=== PATIENT | female | born 1945 | race Caucasian/White ===

== ENCOUNTER 2017-06-23 10:08 | Emergency (ER) | payer OTHER ==
[~2017-06-23] VITALS: Ht 160 cm; Wt 83.9 kg
[~2017-06-23 10:08] MED LIST: AMLO10TA PO; SIMV40TA1 PO
[2017-06-23 10:09] VITALS: BP 160/104
--- NOTE | 2017-06-23 10:18 | NUR ---
PT AMBULATED TO ER BED 01
--- NOTE | 2017-06-23 10:22 | NUR ---
72/F PRESENT TO ER C/O HIGH BLOOD PRESSURE x ONE WEEK. . DENIES N/V/D; SKIN IS PINK/WARM/DRY; AAOX4 WITH EVEN AND STEADY GAIT; LUNGS CLEAR BL; HR EVEN AND REGULAR; PT DENIES ANY FEVER, CP, SOB, OR COUGH AT THIS TIME; PATIENT STATES PAIN OF 8/10 AT THIS TIME; VSS; PATIENT POSITIONED FOR COMFORT; HOB ELEVATED; BEDRAILS UP X2; BED DOWN. ER MD MADE AWARE OF PT STATUS.
[2017-06-23] MEDS ORDERED: ACETAMINOPHEN EXTRA STRENGTH 500 MG TAB PO ONE (10:55)
[2017-06-23 11:09] LABS: BASOPHILS # (AUTO) 0.3 K/uL (0.00-0.22); BASOPHILS % (AUTO) 3.1 % (0.0-2.0); EOSINOPHILS # (AUTO) 0.1 K/uL (0-0.4); EOSINOPHILS % (AUTO) 1.3 % (0.0-4.0); HEMATOCRIT 39.1 % (36-48); LYMPHOCYTES # (AUTO) 2.5 K/uL (2.5-16.5); LYMPHOCYTES % (AUTO) 27.3 % (20.5-51.1); MEAN CORPUSCULAR HEMOGLOBIN 28 pg (27-31); MEAN CORPUSCULAR HGB CONC 33 g/dL (33-37); MEAN CORPUSCULAR VOLUME 85 fL (80-94); MONOCYTES # (AUTO) 0.4 K/uL (0.8-1.0); MONOCYTES % (AUTO) 3.9 % (1.7-9.3); NEUTROPHILS # (AUTO) 5.8 K/uL (1.8-7.7); NEUTROPHILS % (AUTO) 64.4 % (42.2-75.2); PLATELET COUNT (AUTO) 270 K/uL (140-450); RED BLOOD CELL COUNT(AUTO) 4.63 MIL/uL (4.20-5.40); RED CELL DISTRIBUTION WIDTH 12.9 % (11.6-13.7); WHITE BLOOD COUNT (AUTO) 9.1 K/uL (4.8-10.8)
--- NOTE | 2017-06-23 11:14 | NUR ---
rechecked bp 145/81, hr 61, o2 sat 99%.
[2017-06-23 11:35] LABS: ALBUMIN 3.6 g/dL (3.4-5.0); ANION GAP 11.9 (8-16); ASPARTATE AMINOTRANSFERASE 11 U/L (15-37); CARBON DIOXIDE 29.4 mmol/L (21-32); CHLORIDE 99 mmol/L (98-107); CREATININE 0.9 mg/dL (0.6-1.3); GLUCOSE 127 mg/dL (74-106); POTASSIUM 4.3 mmol/L (3.5-5.1); SODIUM SERUM 136 mmol/L (136-145); TOTAL BILIRUBIN 0.4 mg/dL (0.0-1.0); UREA NITROGEN, BLOOD 15 mg/dL (7-18)
[2017-06-23 11:47] LABS: CREATINE KINASE MB 0.9 ng/mL (0-3.6)
[2017-06-23 12:53] VITALS: BP 132/79
== END 2017-06-23 12:52 | disposition home or self-care (01) ==
LOC: MED 10:08
DX: I10 Essential (primary) hypertension (principal); R35.0 Frequency of micturition
CPT/HCPCS: 36415; 71045; 80053; 82550; 82553; 84484; 85025; 93005; 99285; Q0092

== ENCOUNTER 2017-12-01 17:37 | Emergency (ER) | payer OTHER ==
[~2017-12-01] VITALS: Ht 162.6 cm; Wt 81.2 kg
[2017-12-01 17:45] VITALS: BP 175/98
--- NOTE | 2017-12-01 17:52 | NUR ---
PT AMBULATED TO RM 7 WITH STEADY GAIT.
--- NOTE | 2017-12-01 18:00 | NUR ---
72F bib friend with c/o high blood pressure. Patient sts bp at home was 200s/90s. No facial/smile symmetry noted. Patient with steady gait. PERRLA. 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 Clear speech with full sentences. Patient reports of right arm pain, bl leg pain, and "waist". Patient denies any recent injury or trauma. Patient denies any cp or sob. RR are even and unlabored. Skin is warm/dry/color appriopriate for ethinicity. ER md Bowens made aware of patient status. Positioned to comfort. All needs met at this time. Awaiting er md palafox. Will continue to monitor.
--- NOTE | 2017-12-01 18:11 | NUR ---
xray by bedside
[2017-12-01 18:29] LABS: BASOPHILS # (AUTO) 0.1 K/uL (0.00-0.22); BASOPHILS % (AUTO) 0.5 % (0.0-2.0); EOSINOPHILS # (AUTO) 0.2 K/uL (0-0.4); EOSINOPHILS % (AUTO) 2.4 % (0.0-4.0); HEMATOCRIT 38.5 % (36-48); HEMOGLOBIN 12.6 g/dL (12.0-16.0); LYMPHOCYTES # (AUTO) 3.7 K/uL (2.5-16.5); MEAN CORPUSCULAR HEMOGLOBIN 28 pg (27-31); MEAN CORPUSCULAR HGB CONC 33 g/dL (33-37); MONOCYTES # (AUTO) 0.7 K/uL (0.8-1.0); MONOCYTES % (AUTO) 7.4 % (1.7-9.3); NEUTROPHILS # (AUTO) 4.8 K/uL (1.8-7.7); NEUTROPHILS % (AUTO) 50.7 % (42.2-75.2); PLATELET COUNT (AUTO) 251 K/uL (140-450); RED BLOOD CELL COUNT(AUTO) 4.53 MIL/uL (4.20-5.40); RED CELL DISTRIBUTION WIDTH 13.2 % (11.6-13.7); WHITE BLOOD COUNT (AUTO) 9.4 K/uL (4.8-10.8)
[2017-12-01 18:40] LABS: POTASSIUM 4.1 mmol/L (3.5-5.1); SODIUM SERUM 126 mmol/L (136-145)
[2017-12-01 18:41] LABS: ANION GAP 8.5 (8-16); CARBON DIOXIDE 28.6 mmol/L (21-32); CHLORIDE 93 mmol/L (98-107); CREATININE 0.7 mg/dL (0.6-1.3); GLUCOSE 119 mg/dL (74-106); UREA NITROGEN, BLOOD 14 mg/dL (7-18)
[2017-12-01 18:59] LABS: ALBUMIN 3.7 g/dL (3.4-5.0); ASPARTATE AMINOTRANSFERASE 13 U/L (15-37); TOTAL BILIRUBIN 0.5 mg/dL (0.0-1.0)
--- NOTE | 2017-12-01 19:11 | NUR ---
Pt report given to TATY. Transfer of care at this time. PT STABLE AT THIS TIME.
--- NOTE | 2017-12-01 19:12 | NUR ---
PATIENT RESTING AT THIS TIME. NO SIGNS OF DISTRESS.
--- NOTE | 2017-12-01 20:10 | NUR ---
Dr. Vazquez evaluating patient at bedside.
[2017-12-01] MEDS ORDERED: ACETAMINOPHEN EXTRA STRENGTH 500 MG TAB PO ONE (20:15)
[2017-12-01] MEDS ORDERED: NACL 0.9% 1,000 ML IV ONE (20:20)
--- NOTE | 2017-12-01 20:24 | NUR ---
Patient taken to CT scan via wheelchair by tech.
--- NOTE | 2017-12-01 20:35 | NUR ---
PATIENT RETURN FROM CT.
[2017-12-01 21:10] LABS: APPEARANCE,URINE CLEAR (CLEAR); BILIRUBIN,URINE NEGATIVE (NEGATIVE); BLOOD, URINE NEGATIVE (NEGATIVE); COLOR,URINE YELLOW (YELLOW); LEUKOCYTE ESTERASE ,URINE NEGATIVE (NEGATIVE); NITRITE, URINE NEGATIVE (NEGATIVE); UGLUCOSE NEGATIVE (NEGATIVE)
[2017-12-01 21:21] LABS: RBC,URINE 0-5 (RARE) /HPF (0-5); WBC,URINE 0-5 (RARE) /HPF (0-5)
[2017-12-01 22:01] LABS: ANION GAP 7.4 (8-16); CARBON DIOXIDE 28.9 mmol/L (21-32); CHLORIDE 96 mmol/L (98-107); CREATININE 0.7 mg/dL (0.6-1.3); GLUCOSE 104 mg/dL (74-106); POTASSIUM 4.3 mmol/L (3.5-5.1); SODIUM SERUM 128 mmol/L (136-145); UREA NITROGEN, BLOOD 13 mg/dL (7-18)
[2017-12-01 22:45] VITALS: BP 170/81
--- NOTE | 2017-12-01 22:45 | NUR ---
Patient discharged with v/s stable. Written and verbal after care instructions given and explained. Patient alert, oriented and verbalized understanding of instructions. Ambulatory with steady gait. All questions addressed prior to discharge. ID band removed. Patient advised to follow up with PMD. Rx of CLONIDINE given. Patient educated on indication of medication including possible reaction and side effects. Opportunity to ask questions provided and answered.
== END 2017-12-01 22:45 | disposition home or self-care (01) ==
LOC: MED 17:37
DX: E86.0 Dehydration (principal); E87.1 Hypo-osmolality and hyponatremia; I10 Essential (primary) hypertension; E78.5 Hyperlipidemia, unspecified; Z76.0 Encounter for issue of repeat prescription; Z79.899 Other long term (current) drug therapy
CPT/HCPCS: 36415; 70450; 71045; 80048; 80053; 81001; 83880; 84484; 85025; 85610; 85730; 87086; 93005; 96360; 99285; J7030; Q0092

== ENCOUNTER 2017-12-14 23:21 | Emergency (ER) | payer OTHER ==
[~2017-12-14] VITALS: Ht 157.5 cm; Wt 88.2 kg
[2017-12-14 23:25] VITALS: BP 163/90
--- NOTE | 2017-12-14 23:30 | NUR ---
PATIENT TO ER BED 5.
--- NOTE | 2017-12-14 23:40 | NUR ---
PATIENT UNABLE TO URINATE AT THIS TIME.
[2017-12-14] MEDS ORDERED: NACL 0.9% 1,000 ML IV ONE (23:45)
[2017-12-14] MEDS ORDERED: ONDANSETRON 4 MG/2 ML VIAL IVP ONE (23:45)
[2017-12-15 00:04] LABS: BASOPHILS % (AUTO) 0.2 % (0.0-2.0); EOSINOPHILS % (AUTO) 0.1 % (0.0-4.0); HEMATOCRIT 38.3 % (36-48); HEMOGLOBIN 12.7 g/dL (12.0-16.0); LYMPHOCYTES # (AUTO) 0.9 K/uL (2.5-16.5); LYMPHOCYTES % (AUTO) 6.7 % (20.5-51.1); MEAN CORPUSCULAR HEMOGLOBIN 28 pg (27-31); MEAN CORPUSCULAR HGB CONC 33 g/dL (33-37); MONOCYTES # (AUTO) 0.4 K/uL (0.8-1.0); MONOCYTES % (AUTO) 2.9 % (1.7-9.3); NEUTROPHILS # (AUTO) 12.7 K/uL (1.8-7.7); NEUTROPHILS % (AUTO) 90.1 % (42.2-75.2); PLATELET COUNT (AUTO) 203 K/uL (140-450); RED BLOOD CELL COUNT(AUTO) 4.62 MIL/uL (4.20-5.40); WHITE BLOOD COUNT (AUTO) 14.1 K/uL (4.8-10.8)
[2017-12-15 00:24] LABS: ALBUMIN 4.2 g/dL (3.4-5.0); ASPARTATE AMINOTRANSFERASE 19 U/L (15-37); CARBON DIOXIDE 24.3 mmol/L (21-32); CHLORIDE 89 mmol/L (98-107); CREATININE 0.8 mg/dL (0.6-1.3); GLUCOSE 163 mg/dL (74-106); LIPASE 96 U/L (73-393); POTASSIUM 3.6 mmol/L (3.5-5.1); TOTAL BILIRUBIN 0.5 mg/dL (0.0-1.0); UREA NITROGEN, BLOOD 16 mg/dL (7-18)
--- NOTE | 2017-12-15 00:25 | NUR ---
PT C/O VOMITING X11 HOURS, 8/10 PAIN TO ABD, ABD IS ROUND, SOFT, NON TENDER, ACTIVE BS X4. PT LAYING IN BED AWAKE, ACTING APPROPRIATE FOR AGE. PMH HIGH CHOLESTEROL NKA
[2017-12-15 00:29] LABS: ANION GAP 14.3 (8-16); SODIUM SERUM 124 mmol/L (136-145)
[2017-12-15] MEDS ORDERED: KETOROLAC 30 MG/ML VIAL IVP ONE (01:20)
[2017-12-15 02:25] VITALS: BP 135/65
--- NOTE | 2017-12-15 02:25 | NUR ---
Patient discharged with v/s stable. Written and verbal after care instructions given and explained. Patient alert, oriented and verbalized understanding of instructions. Ambulatory with steady gait. All questions addressed prior to discharge. ID band removed. Patient advised to follow up with PMD. Rx of Motrin, Atarax, Zofran given. Patient educated on indication of medication including possible reaction and side effects. Opportunity to ask questions provided and answered.
== END 2017-12-15 02:25 | disposition home or self-care (01) ==
LOC: MED 23:21
DX: R11.2 Nausea with vomiting, unspecified (principal); R51 Headache; R10.30 Lower abdominal pain, unspecified
CPT/HCPCS: 36415; 80053; 81002; 83690; 85025; 96361; 96374; 96375; 99284; J1885; J2405; J7030

== ENCOUNTER 2020-12-26 13:52 | Emergency (ER) | payer OTHER ==
[~2020-12-26] VITALS: Ht 160 cm; Wt 90.9 kg
[2020-12-26 13:59] VITALS: BP 159/108
--- NOTE | 2020-12-26 14:15 | NUR ---
Pt ambulated to bed 09.
[2020-12-26] MEDS ORDERED: KETOROLAC 60 MG/2 ML VIAL IM ONE (14:25)
--- NOTE | 2020-12-26 14:26 | NUR ---
75 Y/O FEMALE C/O URINARY BURNING SENSATION, LOWER ABD PAIN, LOWER BACK PAIN X 1 MONTH. SEEN BY PCP 1 WEEK AGO FOR UTI & GOT SULFA & INJECTION. PT STATES 10/10 SHARP PAIN RADIATING TO LOWER LEGS. TENDER UPON PALPATION. PMH: HTN, DM, HLD NKA
--- NOTE | 2020-12-26 14:26 | NUR ---
DR DANIEL AT BEDSIDE EXAMINING PT
[2020-12-26] MEDS ORDERED: IBUP-2213 PO (14:33)
[2020-12-26] MEDS ORDERED: CIPR500T4 PO (14:33)
[2020-12-26 14:49] VITALS: BP 159/108
--- NOTE | 2020-12-26 14:49 | NUR ---
Patient discharged with v/s stable. Written and verbal after care instructions given and explained. Patient alert, oriented and verbalized understanding of instructions. Ambulatory with steady gait. All questions addressed prior to discharge. ID band removed. Patient advised to follow up with PMD. Rx of CIPROFLOXACIN AND IBUPROFEN given. Patient educated on indication of medication including possible reaction and side effects. Opportunity to ask questions provided and answered.
== END 2020-12-26 14:49 | disposition home or self-care (01) ==
LOC: MED 13:52
DX: N39.0 Urinary tract infection, site not specified (principal); M54.9 Dorsalgia, unspecified; I10 Essential (primary) hypertension; Z79.899 Other long term (current) drug therapy
CPT/HCPCS: 81002; 87086; 96372; 99283; J1885

== ENCOUNTER 2020-12-30 09:13 | Emergency (ER) | payer OTHER ==
[~2020-12-30] VITALS: Ht 157.5 cm; Wt 89.8 kg
[~2020-12-30 09:13] MED LIST changes: +CIPR500T4 PO; +IBUP-2213 PO
[2020-12-30 09:27] VITALS: BP 164/91
[2020-12-30] MEDS ORDERED: DEXAMETHASONE 10 MG/ML VIAL IM ONE (09:40)
--- NOTE | 2020-12-30 09:57 | NUR ---
DR PIKE EVALUATING PT AT BEDSIDE
[2020-12-30 10:04] LABS: APPEARANCE,URINE CLEAR (CLEAR); BILIRUBIN,URINE NEGATIVE (NEGATIVE); BLOOD, URINE NEGATIVE (NEGATIVE); COLOR,URINE YELLOW (YELLOW); LEUKOCYTE ESTERASE ,URINE 1+ (NEGATIVE); NITRITE, URINE NEGATIVE (NEGATIVE); PH,URINE 5.5 (5.0-9.0); UGLUCOSE NEGATIVE (NEGATIVE)
--- NOTE | 2020-12-30 10:05 | NUR ---
75/F PRESENTS TO ED WITH C/O BODY ACHES AND PAINFUL URINATION. STATES SHE WAS SEEN HERE ON MONDAY FOR SAME SYMPTOMS AND GIVEN RX BUT STATES SHE HAS NOT EXPERIENCED RELIEF. PATIENT DENIES N/V/D, DENIES CP, SOB, FEVER OR CHILLS.
[2020-12-30 10:25] LABS: RBC,URINE 0-5 /HPF (0-5)
[2020-12-30 11:07] LABS: BASOPHILS % (AUTO) 0.6 % (0.0-2.0); EOSINOPHILS # (AUTO) 0.1 K/uL (0-0.4); EOSINOPHILS % (AUTO) 1.3 % (0.0-4.0); HEMATOCRIT 37.8 % (36-48); HEMOGLOBIN 12.3 g/dL (12.0-16.0); LYMPHOCYTES # (AUTO) 2.6 K/uL (2.5-16.5); LYMPHOCYTES % (AUTO) 34.7 % (20.5-51.1); MEAN CORPUSCULAR HEMOGLOBIN 29 pg (27-31); MEAN CORPUSCULAR HGB CONC 33 g/dL (33-37); MEAN CORPUSCULAR VOLUME 87.4 fL (80-94); MONOCYTES # (AUTO) 0.6 K/uL (0.8-1.0); MONOCYTES % (AUTO) 7.7 % (1.7-9.3); NEUTROPHILS # (AUTO) 4.2 K/uL (1.8-7.7); NEUTROPHILS % (AUTO) 55.7 % (42.2-75.2); PLATELET COUNT (AUTO) 309 K/uL (140-450); RED BLOOD CELL COUNT(AUTO) 4.32 MIL/uL (4.20-5.40); RED CELL DISTRIBUTION WIDTH 14.2 % (11.6-13.7); WHITE BLOOD COUNT (AUTO) 7.6 K/uL (4.8-10.8)
[2020-12-30 11:14] LABS: ANION GAP 11.7 (8-16); CARBON DIOXIDE 27.3 mmol/L (21-32); CHLORIDE 94 mmol/L (98-107); CREATININE 0.8 mg/dL (0.6-1.3); GLUCOSE 103 mg/dL (74-106); SODIUM SERUM 128 mmol/L (136-145); UREA NITROGEN, BLOOD 14 mg/dL (7-18)
--- NOTE | 2020-12-30 11:15 | NUR ---
PATIENT APPEARS TO BE RESTING IN BED. AWAITING RESULTS.
[2020-12-30] MEDS ORDERED: ACETAMINOPHEN 325 MG TAB PO ONE (12:15)
[2020-12-30 12:39] VITALS: BP 164/91
--- NOTE | 2020-12-30 12:40 | NUR ---
Patient discharged with v/s stable. Written and verbal after care instructions given and explained. Patient verbalized understanding. Ambulatory with steady gait. All questions addressed prior to discharge. Advised to follow up with PMD.
== END 2020-12-30 12:39 | disposition home or self-care (01) ==
LOC: MED 09:13
DX: N39.0 Urinary tract infection, site not specified (principal); E87.1 Hypo-osmolality and hyponatremia; Z79.899 Other long term (current) drug therapy
CPT/HCPCS: 36415; 80048; 81001; 85025; 87086; 99283

== ENCOUNTER 2021-08-09 10:33 | Emergency (ER) | payer OTHER ==
[~2021-08-09] VITALS: Ht 160 cm; Wt 83.5 kg
[2021-08-09 10:35] VITALS: BP 148/84
[2021-08-09] MEDS ORDERED: NACL 0.9% 1,000 ML IV SCH (11:10)
--- NOTE | 2021-08-09 11:33 | NUR ---
LABS COLLECTED BEDSIDE, LABS AND URINE SAMPLE WALKED TO LAB.
--- NOTE | 2021-08-09 11:46 | NUR ---
76/F PRESENTS TO ED WITH C/O INTERMITTENT LOWER ABDOMINAL PAIN X2 WEEKS. PATIENT ALSO C/O NOCTURIA, DYSURIA AND EPISODES OF CONSTIPATION. DENIES N/V/D, DENIES TAKING MEDICATION FOR SYMPTOMS.
[2021-08-09 11:50] LABS: APPEARANCE,URINE HAZY (CLEAR); BILIRUBIN,URINE NEGATIVE (NEGATIVE); BLOOD, URINE NEGATIVE (NEGATIVE); COLOR,URINE YELLOW (YELLOW); LEUKOCYTE ESTERASE ,URINE 1+ (NEGATIVE); NITRITE, URINE NEGATIVE (NEGATIVE); UGLUCOSE NEGATIVE (NEGATIVE)
--- NOTE | 2021-08-09 11:50 | NUR ---
MD GARRETT AT BEDSIDE
[2021-08-09 11:53] LABS: BASOPHILS # (AUTO) 0.1 K/uL (0.00-0.22); BASOPHILS % (AUTO) 1.4 % (0.0-2.0); EOSINOPHILS # (AUTO) 0.1 K/uL (0-0.4); EOSINOPHILS % (AUTO) 1.4 % (0.0-4.0); HEMATOCRIT 37.8 % (36-48); HEMOGLOBIN 12.5 g/dL (12.0-16.0); LYMPHOCYTES # (AUTO) 2.5 K/uL (2.5-16.5); LYMPHOCYTES % (AUTO) 29.6 % (20.5-51.1); MEAN CORPUSCULAR HEMOGLOBIN 28 pg (27-31); MEAN CORPUSCULAR HGB CONC 33 g/dL (33-37); MEAN CORPUSCULAR VOLUME 85.5 fL (80-94); MONOCYTES # (AUTO) 0.6 K/uL (0.8-1.0); MONOCYTES % (AUTO) 7.4 % (1.7-9.3); NEUTROPHILS # (AUTO) 5.1 K/uL (1.8-7.7); NEUTROPHILS % (AUTO) 60.2 % (42.2-75.2); PLATELET COUNT (AUTO) 296 K/uL (140-450); RED BLOOD CELL COUNT(AUTO) 4.41 MIL/uL (4.20-5.40); WHITE BLOOD COUNT (AUTO) 8.5 K/uL (4.8-10.8)
[2021-08-09 11:59] LABS: ALBUMIN 3.8 g/dL (3.4-5.0); ANION GAP 14.5 (8-16); ASPARTATE AMINOTRANSFERASE 10 U/L (15-37); CARBON DIOXIDE 25.4 mmol/L (21-32); CHLORIDE 97 mmol/L (98-107); CREATININE 0.8 mg/dL (0.6-1.3); GLUCOSE 135 mg/dL (74-106); LIPASE 103 U/L (73-393); POTASSIUM 3.9 mmol/L (3.5-5.1); SODIUM SERUM 133 mmol/L (136-145); TOTAL BILIRUBIN 0.3 mg/dL (0.0-1.0); UREA NITROGEN, BLOOD 14 mg/dL (7-18)
[2021-08-09 12:05] LABS: RBC,URINE 0-5 /HPF (0-5)
[2021-08-09 12:06] LABS: URINE AMORPHOUS URATE 1+ /HPF (None Seen)
--- NOTE | 2021-08-09 12:15 | NUR ---
PT TAKEN TO CT VIA REBECCA
--- NOTE | 2021-08-09 12:36 | NUR ---
PT RETURNED FROM CT
[2021-08-09] MEDS ORDERED: cephALEXin 500 MG CAP PO ONE (13:15)
[2021-08-09] MEDS ORDERED: CEPH-588 PO (13:17)
[2021-08-09] MEDS ORDERED: MIRABULK PO (13:17)
--- NOTE | 2021-08-09 14:47 | NUR ---
Patient discharged with v/s stable. Written and verbal after care instructions given and explained. Patient alert, oriented and verbalized understanding of instructions. Ambulatory with steady gait. All questions addressed prior to discharge. ID band removed. Patient advised to follow up with PMD. Rx of CEPHALEXIN AND POLYETHYLENE given. Patient educated on indication of medication including possible reaction and side effects. Opportunity to ask questions provided and answered.
--- NOTE | 2021-08-09 14:47 | NUR ---
IV removed, catheter intact and site benign. Applied folded 4x4 gauze and tape to stop bleeding.
[2021-08-09 14:49] VITALS: BP 155/95
--- NOTE | 2021-08-09 14:50 | NUR ---
The patient's care was reviewed and supervised by Matilde Gold RN.
[2021-08-09] MEDS ORDERED: [UNRECOGNIZED DRUG - CODE] PO (14:54)
== END 2021-08-09 14:49 | disposition home or self-care (01) ==
LOC: MED 10:33
DX: K59.00 Constipation, unspecified (principal); N39.0 Urinary tract infection, site not specified; E11.9 Type 2 diabetes mellitus without complications; I10 Essential (primary) hypertension; Z79.899 Other long term (current) drug therapy
CPT/HCPCS: 36415; 80053; 81001; 83690; 85025; 87086; 96360; 96361; 99285; J7030

== ENCOUNTER 2023-01-16 12:38 | Emergency (ER) | payer OTHER ==
[~2023-01-16] VITALS: Ht 160 cm; Wt 88.9 kg
[~2023-01-16 12:38] MED LIST changes: +CEPH-588 PO; +MIRABULK PO; +SIMV-373 PO; -SIMV40TA1 PO; +[UNRECOGNIZED DRUG - CODE] PO
[2023-01-16 12:53] VITALS: BP 139/70; PULSE 83; RESP 18; TEMP 97; O2SAT 97
== END 2023-01-16 15:13 | disposition left against medical advice (07) ==
LOC: MED 12:38
DX: M79.602 Pain in left arm (principal); R42 Dizziness and giddiness; Z53.21 Procedure and treatment not carried out due to patient leaving prior to being seen by health care provider
CPT/HCPCS: 99281